=== PATIENT | female | born 1945 | race Caucasian/White ===

== ENCOUNTER 2017-02-16 10:39 | Inpatient (IN) | payer OTHER, MEDICARE ==
[2017-02-16] VITALS (10 sets, daily range): BP systolic 121–159; BP diastolic 61–74; PULSE 53–64; RESP 17–28; TEMP 98.2–98.5; O2SAT 96–100
[~2017-02-16] VITALS: Ht 165.1 cm; Wt 80.3 kg
[2017-02-16] MEDS ORDERED: ONDANSETRON HCL 4 MG/2 ML VIAL ONE (10:49)
[2017-02-16] MEDS ORDERED: ceFAZolin 2 GM PREMIX 50 ML ONE (10:49)
[2017-02-16] MEDS ORDERED: ONDANSETRON HCL 4 MG/2 ML VIAL IV PUSH ONE (11:00)
[2017-02-16] MEDS ORDERED: ceFAZolin 2 GM PREMIX 50 ML IV STA (11:00)
[2017-02-16 11:05] LABS: AUTOMATED NEUTROPHIL # 5.2 TH/MM3 (1.8-7.7); BASOPHIL # 0.1 TH/MM3 (0-0.2); BASOPHIL % 0.7 % (0.0-2.0); EOSINOPHIL # 0.2 TH/MM3 (0-0.4); EOSINOPHIL % 2.6 % (0.0-4.0); HEMATOCRIT 39.2 % (35.0-46.0); HEMOGLOBIN 13.4 GM/DL (11.6-15.3); LYMPH % 18.6 % (9.0-44.0); LYMPHOCYTE # 1.4 TH/MM3 (1.0-4.8); MEAN CELL VOLUME 90.6 FL (80.0-100.0); MEAN CORPUSCULAR HGB CONC 34.2 % (32.0-36.0); MEAN PLATELET VOLUME 7.7 FL (7.0-11.0); MONO % 9.7 % (0.0-8.0); MONOCYTE # 0.7 TH/MM3 (0-0.9); NEUT % 68.4 % (16.0-70.0); PLATELET COUNT 247 TH/MM3 (150-450); RED BLOOD COUNT 4.33 MIL/MM3 (4.00-5.30); RED CELL DISTRIBUTION WIDTH 13.7 % (11.6-17.2); WHITE BLOOD COUNT 7.6 TH/MM3 (4.0-11.0)
[2017-02-16 11:10] LABS: PROTHROMBIN TIME - PATIENT 10.6 SEC (9.8-11.6)
--- NOTE | 2017-02-16 11:11 | RADRPT ---
EXAM DATE/TIME: 02/16/2017 10:41 [facility] COMPARISON: No previous studies available for comparison. INDICATIONS : Trauma alert, fall. MEDICAL HISTORY : None. SURGICAL HISTORY : None. ENCOUNTER: Initial ACUITY: 1 day PAIN SCORE: Non-responsive. LOCATION: Bilateral chest FINDINGS: A single view of the chest demonstrates the lungs to be symmetrically aerated without evidence of mas s, infiltrate or effusion. The cardiomediastinal contours are unremarkable. Osseous structures are intact. There are overlying electrocardiogram leads. CONCLUSION: No acute cardiopulmonary disease. Girma Silver MD on February 16, 2017 at 11:09 Board Certified Radiologist. This report was verified electronically.
[2017-02-16] MEDS ORDERED: IOHEXOL 350 MG/ML 10 ML VIAL (for RAD DIAG) IVCONTRAST ONE (11:19)
[2017-02-16] MEDS ORDERED: PAXI10TA8 PO (11:26)
[2017-02-16] MEDS ORDERED: HYDR25TA5 PO (11:26)
[2017-02-16] MEDS ORDERED: ASPI-516 CHEW (11:26)
[2017-02-16] MEDS ORDERED: PROCHLORPERAZINE INJ 10 MG/2 ML VIAL IV PUSH ONE (11:30)
[2017-02-16] MEDS ORDERED: LIDOCAINE 2%/EPINEPHrine 1:100,000 30ML MDV INFIL ONE (11:30)
[2017-02-16] MEDS ORDERED: MORPHINE SULFATE 4 MG/ML INJ IV PUSH ONE (11:30)
[2017-02-16] MEDS ORDERED: LIDOCAINE HCL 1% 50 ML VIAL INFIL ONE (11:30)
--- NOTE | 2017-02-16 11:30 | RADRPT ---
EXAM DATE/TIME: 02/16/2017 10:58 [facility] COMPARISON: No previous studies available for comparison. INDICATIONS : Fell down stairs. RADIATION DOSE: 54.89 CTDIvol (mGy) MEDICAL HISTORY : Unobtainable SURGICAL HISTORY : Unobtainable ENCOUNTER: Initial ACUITY: 1 day PAIN SCALE: 9/10 LOCATION: cranial TECHNIQUE: Multiple contiguous axial images were obtained of the head. Using automated exposure control and adj ustment of the mA and/or kV according to patient size, radiation dose was kept as low as reasonably a chievable to obtain optimal diagnostic quality images. DICOM format image data is available electro nically for review and comparison. FINDINGS: There is subarachnoid hemorrhage along the suprasellar cisterns right greater than left. There i s also subarachnoid hemorrhage extending along both sides of the superior cerebral falx best seen on axial image #23. There is no mass effect or midline shift. The ventricular system is at the upper casillas its of normal. The posterior fossa and brainstem are intact. There is diffuse atrophic change with bruner lcal and ventricular prominence. There is soft tissue swelling over the left parietal and occipital b ones with no evidence of fracture. CONCLUSION: 1. Subarachnoid hemorrhage along the suprasellar cisterns right greater than left as well as along th e superior aspect of the cerebral falx. 2. Soft tissue swelling of the left parietal occipital bone with no evidence of fracture. Girma Silver MD on February 16, 2017 at 11:26 Board Certified Radiologist. This report was verified electronically.
--- NOTE | 2017-02-16 11:32 | RADRPT ---
EXAM DATE/TIME: 02/16/2017 10:58 [facility] COMPARISON: No previous studies available for comparison. INDICATIONS : Fell down stairs. RADIATION DOSE: 21.47 CTDIvol (mGy) MEDICAL HISTORY : Unobtainable SURGICAL HISTORY : Unobtainable ENCOUNTER: Initial ACUITY: 1 day PAIN SCALE: 9/10 LOCATION: neck TECHNIQUE: Volumetric scanning of the cervical spine was performed. Multiplanar reconstructions in the sagittal, coronal and oblique axial planes were performed. Using automated exposure control and adjustment o f the mA and/or kV according to patient size, radiation dose was kept as low as reasonably achievable to obtain optimal diagnostic quality images. DICOM format image data is available electronically f or review and comparison. FINDINGS: The sagittal reconstructions demonstrate normal alignment and normal prevertebral soft tissues. The d ens is intact and there is a normal atlantoaxial relationship. Degenerative disc changes are noted wi th disc space narrowing and hypertrophic change. Ossification is noted along the posterior longitudin al ligament with mass effect on the thecal sac at the C4-C6 7 level. The axial images demonstrate that the vertebral bodies and posterior elements are intact. The soft ti ssues are within normal limits. There is no evidence of acute fracture or malalignment. CONCLUSION: Negative trauma CT. Girma Silver MD on February 16, 2017 at 11:29 Board Certified Radiologist. This report was verified electronically.
--- NOTE | 2017-02-16 11:38 | RADRPT ---
EXAM DATE/TIME: 02/16/2017 11:07 [facility] COMPARISON: No previous studies available for comparison. INDICATIONS : Fell down stairs. IV CONTRAST: 95 cc Omnipaque 350 (iohexol) IV RADIATION DOSE: 4.62 CTDIvol (mGy) MEDICAL HISTORY : Unobtainable SURGICAL HISTORY : Unobtainable ENCOUNTER: Initial ACUITY: 1 day PAIN SCALE: 9/10 LOCATION: chest TECHNIQUE: Volumetric scanning of the chest was performed. Using automated exposure control and adjustment of t he mA and/or kV according to patient size, radiation dose was kept as low as reasonably achievable to obtain optimal diagnostic quality images. DICOM format image data is available electronically for review and comparison. Follow-up recommendations for detected pulmonary nodules are based at a minimum on nodule size and pa tient risk factors according to Fleischner Society Guidelines. FINDINGS: LUNGS: There is no consolidation or pneumothorax. No concerning pulmonary nodule is visualized. PLEURA: There is no pleural thickening or pleural effusion. MEDIASTINUM: The heart and great vessels demonstrate no acute abnormality. There is no mediastinal or hilar lymph adenopathy. AXILLAE: Within normal limits. No lymphadenopathy. SKELETAL: Within normal limits for patient age. MISCELLANEOUS: The visualized upper abdominal organs demonstrate no acute abnormality. CONCLUSION: Negative trauma CT Girma Silver MD on February 16, 2017 at 11:35 Board Certified Radiologist. This report was verified electronically.
--- NOTE | 2017-02-16 11:51 | PD ---
Physical Exam Date Seen by Provider: Feb 16, 2017 Time Seen by Provider: 11:48 Data Data Last Documented VS Vital Signs Date Time Temp Pulse Resp B/P (MAP) Pulse Ox O2 Delivery O2 Flow Rate FiO2 02/16/17 11:29 100 Room Air 02/16/17 10:49 3.00 Orders Orders Cefazolin 2 Gm Premix (Ancef 2 Gm Premix (02/16/17 10:49) Ondansetron Inj (Zofran Inj) (02/16/17 10:49) I-Stat Profile (02/16/17 10:42) I-Stat Creatinine (02/16/17 10:42) Complete Blood Count With Diff (02/16/17 10:42) Prothrombin Time / Inr (Pt) (02/16/17 10:42) Act Partial Throm Time (Ptt) (02/16/17 10:42) Type And Screen (02/16/17 10:42) Chest, Single Ap (02/16/17 10:42) Ct Brain W/O Iv Contrast(Rout) (02/16/17 10:42) Ct Cerv Spine W/O Contrast (02/16/17 10:42) Ct Thorax/ Chest W Iv Contrast (02/16/17 10:42) Iv Access Insert/Monitor (02/16/17 10:42) Ecg Monitoring (02/16/17 10:42) Oximetry (02/16/17 10:42) Oxygen Administration (02/16/17 10:42) Lidocaine 1% Inj (50 Ml) (Xylocaine 1% I (02/16/17 11:30) Iohexol 350 Inj (Omnipaque 350 Inj) (02/16/17 11:19) Lidocai-Epi 2%-1:100,000 Inj (Xylocaine- (02/16/17 11:30) Morphine Inj (Morphine Inj) (02/16/17 11:30) Prochlorperazine Inj (Compazine Inj) (02/16/17 11:30) Labs Laboratory Tests Test 02/16/17 10:45 White Blood Count 7.6 TH/MM3 Red Blood Count 4.33 MIL/MM3 Hemoglobin 13.4 GM/DL Bedside Hemoglobin 12.6 G/DL Hematocrit 39.2 % Bedside Hematocrit 37.0 % Mean Corpuscular Volume 90.6 FL Mean Corpuscular Hemoglobin 31.0 PG Mean Corpuscular Hemoglobin Concent 34.2 % Red Cell Distribution Width 13.7 % Platelet Count 247 TH/MM3 Mean Platelet Volume 7.7 FL Neutrophils (%) (Auto) 68.4 % Lymphocytes (%) (Auto) 18.6 % Monocytes (%) (Auto) 9.7 % Eosinophils (%) (Auto) 2.6 % Basophils (%) (Auto) 0.7 % Neutrophils # (Auto) 5.2 TH/MM3 Lymphocytes # (Auto) 1.4 TH/MM3 Monocytes # (Auto) 0.7 TH/MM3 Eosinophils # (Auto) 0.2 TH/MM3 Basophils # (Auto) 0.1 TH/MM3 CBC Comment DIFF FINAL Differential Comment Prothrombin Time 10.6 SEC Prothromb Time International Ratio 1.0 RATIO Activated Partial Thromboplast Time 22.1 SEC Bedside Sodium 142 MMOL/L Bedside Potassium 3.3 MMOL/L Bedside Chloride 106 MMOL/L Bedside Blood Urea Nitrogen 10 MG/DL Bedside Creatinine 0.6 MG/DL Bedside Glucose 122 MG/DL [facility] Supervised Visit with HONG: No Narrative Course I was asked to evaluate this patient's scalp laceration. The patient was initially seen by Dr. Barnes. Please see his note for full H& P. On my exam there is a stellate laceration of the occiput totaling approximately 6 cm. Laceration repair was performed. Please see my procedure note for details. Dr. Barnes retains care of this patient. Please see his note for disposition. Procedures Procedure Narrative LACERATION LOCATION: Posterior scalp LENGTH: 6 cm stellate NUMBER OF STITCHES/MARGARITA: 12 REPAIR: The area of the laceration was prepped with Betadine and sterilely draped. The laceration was infiltrated with 1% lidocaine with epinephrine. The wound was copiously irrigated and explored without evidence of foreign body, tendon injury or neurovascular injury. The wound was closed using surgical margarita. This was a single layer repair.. The patient was advised to keep the wound clean and dry. Patient tolerated the procedure well. Gem Mcdonnell Feb 16, 2017 11:51
--- NOTE | 2017-02-16 13:17 | PD ---
HPI Chief Complaint: Trauma (Alert) Time Seen by Provider: 11:15 Travel History International Travel<30 days: No Contact w/Intl Traveler<30days: No Traveled to known affect area: No History of Present Illness HPI 77-year-old female with history of hypertension, previous A. fib, who presents today after she fell down stairs. Patient was made a trauma alert by the EMS system for geophysical engineer discretion. Report was that she fell down 20 steps. [employer]'s report a loss of consciousness for greater than 1 minute. There is also reported large laceration to the back of her head. Patient was complaining of lateral neck pain. The patient was amnestic to the event. She was slightly confused en route. She is currently not taking any blood thinners other than a baby aspirin daily. She also takes Hydrocort thiazide. She reports her tetanus shot is up-to-date. There are no other reported injuries. Allergies-Medications (Allergen,Severity, Reaction): Coded Allergies: aspirin (Verified Allergy, Unknown, Nausea/Vomiting, 02/16/17) codeine (Verified Allergy, Unknown, Nausea/Vomiting, 02/16/17) oxycodone (Verified Allergy, Unknown, Nausea/Vomiting, 02/16/17) Reported Meds & Prescriptions Reported Meds & Active Scripts Active Reported Aspirin 81 Mg Chew 81 Mg CHEW DAILY Hydrochlorothiazide 25 Mg Tab 25 Mg PO DAILY Paxil (Paroxetine HCl) 10 Mg Tab 10 Mg PO DAILY Review of Systems Except as stated in HPI: all other systems reviewed are Neg General / Constitutional: No: Fever, Chills Eyes: No: Diploplia, Blurred Vision HENT: Positive: Headaches (left lateral/posterior), Neck Pain (left lateral), No: Vertigo Cardiovascular: No: Chest Pain or Discomfort, Palpitations Respiratory: No: Shortness of Breath, Pleuritic Pain Gastrointestinal: Positive: Nausea, No: Vomiting, Abdominal Pain Genitourinary: No: Incontinence Musculoskeletal: No: Myalgias, Weakness, Edema, Pain (no extremity pain) Skin: Positive Lesions (left posterior scalp laceration), No Rash Neurologic: Positive: Headache, Change in Mentation, No: Weakness, Dizziness, Syncope, Incontinence, Seizures, Sensory Disturbance Psychiatric: Positive: Anxiety Physical Exam Narrative GENERAL: Well-developed well-nourished female who is brought in with a c-collar and. The patient was refusing backboard. He was awake and answering questions as she was being wheeled in. SKIN: Focused skin assessment warm/dry. HEAD: Large stellate laceration to the left posterior occipital area. There appeared to be some tissue missing. There is no obvious depressed skull fracture noted. No active bleeding. EYES: Extraocular muscles were intact No scleral icterus. No injection or drainage. ENT: No nasal bleeding or discharge. Mucous membranes pink and moist. NECK: Trachea midline. In c-collar immobilization. CARDIOVASCULAR: Regular rate and rhythm. No murmur appreciated. RESPIRATORY: No accessory muscle use. Clear to auscultation. Breath sounds equal bilaterally. GASTROINTESTINAL: Abdomen soft, non-tender, nondistended. No rebound or guarding. MUSCULOSKELETAL: No obvious deformities. No clubbing. No cyanosis. No edema. No obvious abrasions noted. NEUROLOGICAL: Awake and alert. Questionable slight repetitive questioning No obvious cranial nerve deficits. Motor grossly within normal limits. Normal speech. PSYCHIATRIC: Appropriate mood and affect; insight and judgment normal. Data Data Last Documented VS Vital Signs Date Time Temp Pulse Resp B/P (MAP) Pulse Ox O2 Delivery O2 Flow Rate FiO2 02/16/17 11:29 100 Room Air 02/16/17 10:49 3.00 Orders Orders Cefazolin 2 Gm Premix (Ancef 2 Gm Premix (02/16/17 10:49) Ondansetron Inj (Zofran Inj) (02/16/17 10:49) I-Stat Profile (02/16/17 10:42) I-Stat Creatinine (02/16/17 10:42) Complete Blood Count With Diff (02/16/17 10:42) Prothrombin Time / Inr (Pt) (02/16/17 10:42) Act Partial Throm Time (Ptt) (02/16/17 10:42) Type And Screen (02/16/17 10:42) Chest, Single Ap (02/16/17 10:42) Ct Brain W/O Iv Contrast(Rout) (02/16/17 10:42) Ct Cerv Spine W/O Contrast (02/16/17 10:42) Ct Thorax/ Chest W Iv Contrast (02/16/17 10:42) Iv Access Insert/Monitor (02/16/17 10:42) Ecg Monitoring (02/16/17 10:42) Oximetry (02/16/17 10:42) Oxygen Administration (02/16/17 10:42) Lidocaine 1% Inj (50 Ml) (Xylocaine 1% I (02/16/17 11:30) Iohexol 350 Inj (Omnipaque 350 Inj) (02/16/17 11:19) Lidocai-Epi 2%-1:100,000 Inj (Xylocaine- (02/16/17 11:30) Morphine Inj (Morphine Inj) (02/16/17 11:30) Prochlorperazine Inj (Compazine Inj) (02/16/17 11:30) Admit Order (Ed Use Only) (02/16/17 11:53) Cefazolin 2 Gm Premix (Ancef 2 Gm Premix (02/16/17 11:00) Ondansetron Inj (Zofran Inj) (02/16/17 11:00) Labs Laboratory Tests Test 02/16/17 10:45 White Blood Count 7.6 TH/MM3 Red Blood Count 4.33 MIL/MM3 Hemoglobin 13.4 GM/DL Bedside Hemoglobin 12.6 G/DL Hematocrit 39.2 % Bedside Hematocrit 37.0 % Mean Corpuscular Volume 90.6 FL Mean Corpuscular Hemoglobin 31.0 PG Mean Corpuscular Hemoglobin Concent 34.2 % Red Cell Distribution Width 13.7 % Platelet Count 247 TH/MM3 Mean Platelet Volume 7.7 FL Neutrophils (%) (Auto) 68.4 % Lymphocytes (%) (Auto) 18.6 % Monocytes (%) (Auto) 9.7 % Eosinophils (%) (Auto) 2.6 % Basophils (%) (Auto) 0.7 % Neutrophils # (Auto) 5.2 TH/MM3 Lymphocytes # (Auto) 1.4 TH/MM3 Monocytes # (Auto) 0.7 TH/MM3 Eosinophils # (Auto) 0.2 TH/MM3 Basophils # (Auto) 0.1 TH/MM3 CBC Comment DIFF FINAL Differential Comment Prothrombin Time 10.6 SEC Prothromb Time International Ratio 1.0 RATIO Activated Partial Thromboplast Time 22.1 SEC Bedside Sodium 142 MMOL/L Bedside Potassium 3.3 MMOL/L Bedside Chloride 106 MMOL/L Bedside Blood Urea Nitrogen 10 MG/DL Bedside Creatinine 0.6 MG/DL Bedside Glucose 122 MG/DL [facility] Medical Screen Exam Complete: Yes Emergency Medical Condition: Yes Differential Diagnosis Intercranial hemorrhage versus skull fracture versus scalp laceration versus cervical spine injury Narrative Course 77-year-old female who is status post falling down stairs. This was unwitnessed. There was witness of at least 1 minute of loss of consciousness. The patient has a large scalp laceration that has been repaired by Ann Mcdonnell PA-C. The patient's head CT shows subarachnoid hemorrhage with no midline shift. Cervical spine films show no evidence of acute injury. Thoracic chest CT scan showed no evidence acute injury or thoracic injury. This was ordered because the plain films showed questionable lung hematoma in the left lower lobe. The patient was given 2 g of Ancef. Her tetanus shot was up-to-date. She will be admitted to the intensive care unit. The case is discussed with Dr. Arrieta, on-call trauma surgeon. Case also discussed with Dr. Jarrell Branch, hand clipper. Dr. Elkin Irby on-call neurosurgeon has also been made aware of the patient's presentation. He is come down to see the patient has requested we order a CT angiogram of the brain. This has been ordered. The patient is awake and alert and oriented. She'll be admitted to the intensive care under Dr. Arrieta with consults with both Drs. Branch and Dr. Irby. Critical Care Narrative Aggregate critical care time was 60 minutes. Time to perform other separately billable procedures was not included in the critical care time. My time did not include minutes spent treating any other patients simultaneously or on activities that did not directly contribute to the patient's treatment. The services I provided to this patient were to treat and/or prevent clinically significant deterioration that could result in: I provided critical care services requiring my management, as noted below: Chart data review, documentation time, medication orders and management, vital sign assessments/reviewing monitor data, ordering and reviewing lab tests, ordering and interpreting/reviewing x-rays and diagnostic studies, care of the patient and discussion of the patient with the admitting physicians. Trauma Alert - Level Two Trauma Alert Level Two: Full trauma team activate, Patient evaluated Time Surgeon Called: 11:30 Diagnosis Diagnosis: Primary Impression: Traumatic subarachnoid hemorrhage Additional Impressions: complex scalp laceration mechanical fall Admitting Physician Requests: Admit Edward Barnes MD Feb 16, 2017 13:17
[2017-02-16] MEDS ORDERED: CHLORHEXIDINE GLUCONATE 2 % 1 PACK (2 CLOTHS) TOP PRN (13:45)
[2017-02-16] MEDS ORDERED: MAGNESIUM HYDROXIDE SUSP 30 ML CUP PO PRN (13:45)
[2017-02-16] MEDS ORDERED: MORPHINE SULFATE 2 MG/ML INJ IV PUSH PRN (13:45)
[2017-02-16] MEDS ORDERED: SODIUM CHLORIDE 0.9% FLUSH 10 ML FLUSH IV FLUSH PRN (13:45)
[2017-02-16] MEDS ORDERED: RESP: ALBUTEROL 2.5 MG/IPRATROPIUM 0.5 MG NEB (PRN) INH (13:45)
[2017-02-16] MEDS ORDERED: BISACODYL 10 MG SUPP RECTAL PRN (13:45)
[2017-02-16] MEDS: SODIUM CHLOR 0.9% 1000 ML INJ 1,000 ML IV SCH (13:45)
[2017-02-16] MEDS ORDERED: LACTULOSE SYRUP 20 GM/30 ML CUP PO PRN (13:45)
[2017-02-16] MEDS ORDERED: SENNOSIDES 8.6 MG TAB PO PRN (13:45)
--- NOTE | 2017-02-16 13:46 | PD.CONS ---
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 CT head reveals subarachnoid hemorrhage. She is conversant and oriented X [address] neck has no acute injury. She will go now for cervical and intracranial arterial studies to look for possible aneurysm as etiology of bleed. Past Family Social History Allergies: Coded Allergies: aspirin (Verified Allergy, Unknown, Nausea/Vomiting, 02/16/17) codeine (Verified Allergy, Unknown, Nausea/Vomiting, 02/16/17) oxycodone (Verified Allergy, Unknown, Nausea/Vomiting, 02/16/17) Physical Exam Vital Signs Vital Signs Date Time Temp Pulse Resp B/P (MAP) Pulse Ox O2 Delivery O2 Flow Rate FiO2 02/16/17 13:03 53 18 152/65 (94) 100 Room Air 02/16/17 12:40 99 02/16/17 12:33 63 17 159/72 (101) 99 Room Air 02/16/17 11:29 100 Room Air 02/16/17 11:29 100 Room Air 02/16/17 10:49 99 3.00 Physical Exam P 64, BP 136/74, R 16 nonlabored, sats 99% Head: Normal. Neck: Stiff, sore. Airway widely patent. Lungs: Clear, no wheezes or crackles. Heart: NL S1S2, RRR. No JVD. Abdomen: Soft, no guarding, BS active. Extremities: Warm, well perfused. No edema. Neuro: O X 3, alert, cooperative. Memory good. Speech clear. Moves 4 limbs with 5/5 strength. Laboratory Laboratory Tests Test 02/16/17 10:45 White Blood Count 7.6 Red Blood Count 4.33 Hemoglobin 13.4 Bedside Hemoglobin 12.6 Hematocrit 39.2 Bedside Hematocrit 37.0 Mean Corpuscular Volume 90.6 Mean Corpuscular Hemoglobin 31.0 Mean Corpuscular Hemoglobin Concent 34.2 Red Cell Distribution Width 13.7 Platelet Count 247 Mean Platelet Volume 7.7 Neutrophils (%) (Auto) 68.4 Lymphocytes (%) (Auto) 18.6 Monocytes (%) (Auto) 9.7 Eosinophils (%) (Auto) 2.6 Basophils (%) (Auto) 0.7 Neutrophils # (Auto) 5.2 Lymphocytes # (Auto) 1.4 Monocytes # (Auto) 0.7 Eosinophils # (Auto) 0.2 Basophils # (Auto) 0.1 CBC Comment DIFF FINAL Differential Comment Prothrombin Time 10.6 Prothromb Time International Ratio 1.0 Activated Partial Thromboplast Time 22.1 Bedside Sodium 142 Bedside Potassium 3.3 Bedside Chloride 106 Bedside Blood Urea Nitrogen 10 Bedside Creatinine 0.6 Bedside Glucose 122 Result Diagram: 02/16/17 1045 Assessment and Plan Problem List: (1) Traumatic subarachnoid hemorrhage ICD Code: S06.6X9A - Traumatic subarachnoid hemorrhage with loss of consciousness of unspecified duration, initial encounter Status: Acute Assessment and Plan Plan: 1. Neuro checks. 2. Repeat Head CT for any change. 3. IV isotonic saline. 4. Avoid chemical DVT px. 5. Ongoing survey looking for additional possible injuries. 6. SCDs. 7. CTA head and neck. 8. Maintain SBP < 150. 9. Neurology consult. Overall impression: Patient has traumatic subarachnoid bleed, likely from trauma but quite possibly from aneurysmal bleed. Expeditious workup in progress. BP control good. Problem Qualifiers (1) Traumatic subarachnoid hemorrhage: Qualified Codes: S06.6X0A - Traumatic subarachnoid hemorrhage without loss of consciousness, initial encounter Edward Branch MD Feb 16, 2017 13:46
[2017-02-16] MEDS ORDERED: MISCELLANEOUS NURSING INFORMATION XX SCH (14:00)
[2017-02-16] MEDS ORDERED: PILL SPLITTER OTHER PRN (14:00)
[2017-02-16] MEDS ORDERED: IODIXANOL 320 MG/ML 10 ML VIAL (for Rad CT) IVCONTRAST ONE (14:17)
--- NOTE | 2017-02-16 15:13 | RADRPT ---
EXAM DATE/TIME: 02/16/2017 13:44 [facility] COMPARISON: CT BRAIN W/O CONTRAST, February 16, 2017, 10:58. INDICATIONS : Subarchnoid hemorage,trauma IV CONTRAST: 70 cc Visipaque (iodixanol) IV ; Cumulative dose for multiple exams. RADIATION DOSE: 17.23 CTDIvol (mGy) ; Combined studies MEDICAL HISTORY : Unable to obtain SURGICAL HISTORY : Unable to obtain ENCOUNTER: Initial ACUITY: 1 day PAIN SCALE: 5/10 LOCATION: CTA BRAIN TECHNIQUE: Volumetric scanning was performed using a multi-row detector CT scanner. The data was post processed with a variety of visualization algorithms including full volume maximum intensity projection, multi -planar sliding thin slab reformation, curved planar reformation, and surface rendering techniques. Using automated exposure control and adjustment of the mA and/or kV according to patient size, radiat ion dose was kept as low as reasonably achievable to obtain optimal diagnostic quality images. DICO M format image data is available electronically for review and comparison. FINDINGS: The distal aspect of the left anterior cerebral artery A1 segment appears to be fenestrated. The more caudal channel is notable for a roughly 2 mm saccular outpouching which could be a tiny aneurysm. Th e [place] of [place] vessels are otherwise intact and unremarkable. No major vessel occlusion is identi fied. No vascular malformation is noted. 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 Jayden Romero MD on February 16, 2017 at 14:59 Board Certified Radiologist. This report was verified electronically.
--- NOTE | 2017-02-16 15:22 | RADRPT ---
EXAM DATE/TIME: 02/16/2017 13:44 [facility] COMPARISON: No previous studies available for comparison. INDICATIONS : Subarchnoid hemorage,trauma IV CONTRAST: 70 cc Visipaque (iodixanol) IV ; Cumulative dose for multiple exams. RADIATION DOSE: 17.23 CTDIvol (mGy) ; Combined studies MEDICAL HISTORY : Unable to obtaion SURGICAL HISTORY : unable to obtain ENCOUNTER: Initial ACUITY: 1 day PAIN SCALE: 5/10 LOCATION: CTA neck Elevated flow velocities and ICA/CCA ratios have been found to correlate with increased degrees of vessel stenosis, calculated as percentage of diameter relative to a normal segment of distal ICA/CCA. TECHNIQUE: Volumetric scanning was performed using a multirow detector CT scanner. The data was post processed with a variety of visualization algorithms including full-volume maximum intensity projection, multip lanar sliding thin-slab reformation, curved-planar reformation, and surface-rendering techniques. Us ing automated exposure control and adjustment of the mA and/or kV according to patient size, radiatio n dose was kept as low as reasonably achievable to obtain optimal diagnostic quality images. DICOM f ormat image data is available electronically for review and comparison. FINDINGS: AORTIC ARCH: Truncus arch anatomy. No evidence of large vessel stenosis. RIGHT CAROTID: The common carotid artery is intact. The carotid bulb has a normal configuration without ulceration o r narrowing. The internal carotid artery lumen is smooth without stenosis. The external carotid alexis ry is intact. LEFT CAROTID: The carotid bifurcation is intact and unremarkable with no evidence of stenosis. The cervical interna l carotid artery is notable for areas of mild beading several centimeters above the bifurcation which may reflect mild involvement with fibromuscular dysplasia VERTEBRALS: The vertebral arteries have a symmetric diameter. No stenotic lesions are seen. 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 Jayedn Romero MD on February 16, 2017 at 15:12 Board Certified Radiologist. This report was verified electronically.
[2017-02-16] MEDS: ACETAMINOPHEN 325 MG TAB PO PRN ×2 (16:18→22:05)
[2017-02-16] MEDS ORDERED: POTASSIUM PHOSPHATE MONOBASIC 500 MG TAB PO/TUBE PRN (16:30)
[2017-02-16] MEDS ORDERED: POTASSIUM CHLOR 20 MEQ PREMIX 100 ML IV PRN ×2 (16:30)
[2017-02-16] MEDS ORDERED: hydrALAZINE HCL 20 MG/ML VIAL IV PUSH PRN (16:30)
[2017-02-16] MEDS ORDERED: POTASSIUM PHOSPHATE INJ 30 MMOL in SODIUM CHLOR 0.9% 250 ML INJ 250 ML IV PRN (16:30)
[2017-02-16] MEDS ORDERED: MAGNESIUM OXIDE 400 MG TAB PO PRN (16:30)
[2017-02-16] MEDS ORDERED: MAGNESIUM SULFATE INJ 4 GM in SODIUM CHLORIDE 0.9% INJ 92 ML IV PRN (16:30)
[2017-02-16] MEDS ORDERED: MAGNESIUM SULFATE INJ 2 GM in SODIUM CHLORIDE 0.9% INJ 96 ML IV PRN (16:30)
[2017-02-16] MEDS ORDERED: POTASSIUM CHLOR 40 MEQ PREMIX 100 ML IV PRN ×2 (16:30)
[2017-02-16] MEDS ORDERED: POTASSIUM PHOSPHATE MONOBASIC 500 MG TAB PO PRN (16:30)
[2017-02-16] MEDS ORDERED: SODIUM PHOSPHATE INJ 30 MMOL in SODIUM CHLOR 0.9% 250 ML INJ 240 ML IV PRN (16:30)
[2017-02-16] MEDS: POTASSIUM CHLORIDE 25 MEQ EFFERVESCENT TAB PO PRN (17:49)
--- NOTE | 2017-02-16 18:20 | PD.CONS ---
HPI Service Neurosurgery Consult Requested By General surgery trauma service Reason for Consult Intracranial-subarachnoid hemorrhage Primary Care Physician Unknown History of Present Illness Patient is a middle-aged female who states that she became dizzy and/or off balance at the top of a flight of stairs, losing her balance and falling down the stairs without definite loss of consciousness. No seizure activity reported Complains of mild headache and nausea without emesis. No dizziness or vertigo. No recent syncopal type episodes No chest pain or shortness of breath No significant pain weakness or numbness in the extremities Review of Systems Constitutional: DENIES: Dizziness Eyes: DENIES: Blurred vision Ears, nose, mouth, throat: DENIES: Hearing loss, Vertigo Respiratory: DENIES: Shortness of breath Cardiovascular: DENIES: Chest pain, Palpitations Gastrointestinal: COMPLAINS OF: Nausea, DENIES: Abdominal pain, Vomiting Musculoskeletal: DENIES: Back pain, Neck pain Neurologic: COMPLAINS OF: Headache Psychiatric: DENIES: Confusion Past Family Social History Allergies: Coded Allergies: aspirin (Verified Allergy, Unknown, Nausea/Vomiting, 02/16/17) codeine (Verified Allergy, Unknown, Nausea/Vomiting, 02/16/17) oxycodone (Verified Allergy, Unknown, Nausea/Vomiting, 02/16/17) Past Medical History No significant cardiac, pulmonary, gastrointestinal disease, diabetes. No definite hypertension. She states she takes hydrochlorothiazide due to edema. Past Surgical History Hysterectomy Reported Medications Reported Meds & Active Scripts Active Reported Aspirin 81 Mg Chew 81 Mg CHEW DAILY Hydrochlorothiazide 25 Mg Tab 25 Mg PO DAILY Paxil (Paroxetine HCl) 10 Mg Tab 10 Mg PO DAILY Family History Negative cardiac disease, cancer, diabetes Social History Does not smoke cigarettes. Drinks alcohol occasionally Physical Exam Vital Signs Vital Signs Date Time Temp Pulse Resp B/P (MAP) Pulse Ox O2 Delivery O2 Flow Rate FiO2 02/16/17 16:11 02/16/17 16:00 98.2 63 28 128/62 (84) 96 02/16/17 16:00 63 02/16/17 15:10 64 18 136/74 (94) 96 Room Air 02/16/17 13:03 53 18 152/65 (94) 100 Room Air 02/16/17 12:40 99 02/16/17 12:33 63 17 159/72 (101) 99 Room Air 02/16/17 11:29 100 Room Air 02/16/17 11:29 100 Room Air 02/16/17 10:49 99 3.00 Physical Exam GENERAL: This is a well-nourished, well-developed patient, no apparent distress. SKIN: No abrasions, contusion, rash noted. Skin warm and dry. HEAD: Stable laceration right occipital region EYES: Sclerae are clear and nonicteric ENT: No facial edema or ecchymosis. No periorbital edema. No CSF otorrhea or rhinorrhea. No palpable facial fracture or deformity. NECK: Trachea midline. No cervical spine tenderness. CARDIOVASCULAR: Regular rate and rhythm without murmurs, gallops, or rubs. RESPIRATORY: Clear to auscultation. Breath sounds equal bilaterally. No wheezes , rales, or rhonchi. GASTROINTESTINAL: Abdomen soft, non-tender, nondistended. No hepato-splenomegaly , or palpable masses. No guarding. MUSCULOSKELETAL: Extremities without cyanosis, or edema. No joint tenderness, or edema noted. No calf tenderness. Dorsalis pedis pulses 2+ bilateral NEUROLOGICAL: Awake and alert Oriented X 3 Speech is clear Conversant and appropriate Follow simple commands well Answers questions appropriately Reasonable judgment and insight Recent and remote memory are intact No evidence of anxiety or depression Pupils are equal and reactive to accommodation. Extra-ocular movements, visual toney to confrontation, facial sensorimotor, tongue, palate, sternocleidomastoid testing, hearing to finger rub testing, and bilateral shoulder shrug are all intact. Sensation is intact to light touch in all extremities Strength normal major flexion and extension groups all extremities Evert's absent bilaterally No ankle clonus Plantar responses absent bilateral Fine motor movements intact upper extremities Laboratory Laboratory Tests Test 02/16/17 10:45 02/16/17 16:50 White Blood Count 7.6 Red Blood Count 4.33 Hemoglobin 13.4 Bedside Hemoglobin 12.6 Hematocrit 39.2 Bedside Hematocrit 37.0 Mean Corpuscular Volume 90.6 Mean Corpuscular Hemoglobin 31.0 Mean Corpuscular Hemoglobin Concent 34.2 Red Cell Distribution Width 13.7 Platelet Count 247 Mean Platelet Volume 7.7 Neutrophils (%) (Auto) 68.4 Lymphocytes (%) (Auto) 18.6 Monocytes (%) (Auto) 9.7 Eosinophils (%) (Auto) 2.6 Basophils (%) (Auto) 0.7 Neutrophils # (Auto) 5.2 Lymphocytes # (Auto) 1.4 Monocytes # (Auto) 0.7 Eosinophils # (Auto) 0.2 Basophils # (Auto) 0.1 CBC Comment DIFF FINAL Differential Comment Prothrombin Time 10.6 Prothromb Time International Ratio 1.0 Activated Partial Thromboplast Time 22.1 Bedside Sodium 142 Bedside Potassium 3.3 Bedside Chloride 106 Bedside Blood Urea Nitrogen 10 Bedside Creatinine 0.6 Bedside Glucose 122 Result Diagram: 02/16/17 1045 Imaging 02/16/17 CT scan head as well as CT angiogram has neck images are reviewed by the undersigned. Agree with findings as noted below: Head CT 02/16/17 104 Signed Impressions: Service Date/Time: Thursday, February 16, 2017 10:58 - CONCLUSION: 1. Subarachnoid hemorrhage along the suprasellar cisterns right greater than left as well as along the superior aspect of the cerebral falx. 2. Soft tissue swelling of the left parietal occipital bone with no evidence of fracture. Girma Silver MD Chest X-Ray 02/16/17 104 Signed Impressions: Service Date/Time: Thursday, February 16, 2017 10:41 - CONCLUSION: No acute cardiopulmonary disease. Girma Silver MD Chest CT 02/16/17 1042 Signed Impressions: Service Date/Time: Thursday, February 16, 2017 11:07 - CONCLUSION: Negative trauma CT Girma Silver MD Cervical Spine CT 02/16/17 1042 Signed Impressions: Service Date/Time: Thursday, February 16, 2017 10:58 - CONCLUSION: Negative trauma CT. 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 Jadyen Romero MD Assessment and Plan Assessment and Plan Impression: 1. Intracranial hemorrhage-subarachnoid hemorrhage. Traumatic versus spontaneous. 2. 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 Recommendations: Continue ISC neurologic checks and vital signs Begin nimodipine due to potential for small anterior cerebral artery aneurysm- subarachnoid hemorrhage. Maintain blood pressure 110-140 range with intravenous medications as needed Non-chemical DVT prophylaxis Ulcer prophylaxis Elkin Irby MD Feb 16, 2017 18:20
--- NOTE | 2017-02-16 18:31 | MH ---
cc: DUNCAN KINCAID DATE OF ADMISSION 02/16/2017 HISTORY OF THE PRESENT ILLNESS This is a patient who was walking and slipped and tripped down a flight of stairs. She was brought in as a level II trauma and evaluated in the emergency room. Found to have closed head injury. Trauma service was requested for admission. On my evaluation the patient is laying in stretcher in no acute distress. A complains of headache. No chest pains or shortness of breath. No paresthesia. She did lose consciousness. PAST MEDICAL HISTORY The patient denies a medical history. PAST SURGICAL HISTORY Has a surgical history significant for hysterectomy. MEDICATIONS She is on aspirin at home. SOCIAL HISTORY She does not smoke. She drinks alcohol occasionally. FAMILY HISTORY Noncontributory. ALLERGIES TO CODEINE. PHYSICAL EXAMINATION HEENT: On exam she has a stapled laceration to her occipital region. Her pupils are equal and reactive. NECK: Nontender. No JVD. LUNGS: Respirations clear. CARDIOVASCULAR: Regular. GASTROINTESTINAL: Soft, nontender. MUSCULOSKELETAL: No deformities. NEUROLOGIC: Nonfocal. LABORATORY DATA The patient's hemoglobin is 12.6. IMAGING Radiological images, CT of the head reveals subarachnoid hemorrhage. CT of the cervical spine is negative. CT scan of the chest is negative. ASSESSMENT This is a patient who slipped and fell with subarachnoid hemorrhage, sutured laceration of forehead. She is being admitted to [facility]. Neurosurgery and assurance specialist will be consulted. We will monitor her neurological status, provide pain management. MD JAMI Patrick/[facility] /5:30 PM /6:07 PM
[2017-02-16] MEDS: SODIUM CHLORIDE 0.9% FLUSH 10 ML FLUSH IV FLUSH SCH (20:18)
[2017-02-16] MEDS: niMODipine 30 MG CAP PO SCH (20:18)
[2017-02-16] MEDS: DOCUSATE SODIUM 50 MG/SENNA 8.6 MG TAB PO SCH (20:22)
[2017-02-16] MEDS: FAMOTIDINE 20 MG TAB PO SCH (20:22)
[2017-02-16] MEDS: ONDANSETRON HCL 4 MG/2 ML VIAL IV PUSH PRN (21:48)
[2017-02-17] VITALS (14 sets, daily range): BP systolic 97–132; BP diastolic 50–61; PULSE 46–59; RESP 13–18; TEMP 97.4–99; O2SAT 94–96
[2017-02-17] MEDS: niMODipine 30 MG CAP PO SCH ×11 (00:25→22:06)
[2017-02-17] MEDS: SODIUM CHLOR 0.9% 1000 ML INJ 1,000 ML IV SCH ×2 (03:14→16:04)
[2017-02-17] MEDS: CHLORHEXIDINE GLUCONATE 2 % 1 PACK (2 CLOTHS) TOP SCH (04:00)
[2017-02-17] MEDS: ACETAMINOPHEN 325 MG TAB PO PRN ×3 (04:08→17:03)
[2017-02-17 04:53] LABS: AUTOMATED NEUTROPHIL # 5.4 TH/MM3 (1.8-7.7); BASOPHIL % 0.4 % (0.0-2.0); EOSINOPHIL # 0.1 TH/MM3 (0-0.4); HEMATOCRIT 32.7 % (35.0-46.0); HEMOGLOBIN 11.3 GM/DL (11.6-15.3); LYMPH % 19.2 % (9.0-44.0); LYMPHOCYTE # 1.5 TH/MM3 (1.0-4.8); MEAN CORPUSCULAR HEMOGLOBIN 31.1 PG (27.0-34.0); MEAN CORPUSCULAR HGB CONC 34.6 % (32.0-36.0); MEAN PLATELET VOLUME 7.8 FL (7.0-11.0); MONO % 9.9 % (0.0-8.0); MONOCYTE # 0.8 TH/MM3 (0-0.9); NEUT % 69.5 % (16.0-70.0); PLATELET COUNT 223 TH/MM3 (150-450); RED BLOOD COUNT 3.64 MIL/MM3 (4.00-5.30); RED CELL DISTRIBUTION WIDTH 13.5 % (11.6-17.2); WHITE BLOOD COUNT 7.7 TH/MM3 (4.0-11.0)
[2017-02-17 05:18] LABS: ALBUMIN 2.8 GM/DL (3.4-5.0); AST (GOT) 18 U/L (15-37); BLOOD UREA NITROGEN 9 MG/DL (7-18); CALCIUM 8.6 MG/DL (8.5-10.1); CHLORIDE 106 MEQ/L (98-107); CREATININE 0.48 MG/DL (0.50-1.00); GLOMERULAR FILTRATION RATE 128 ML/MIN (>89); GLUCOSE,RANDOM 94 MG/DL (74-106); SODIUM (NA) 138 MEQ/L (136-145)
[2017-02-17 05:22] LABS: ALKALINE PHOSPHATASE 49 U/L (45-117); ALT (GPT) 13 U/L (10-53); TOTAL BILIRUBIN ADULT 0.5 MG/DL (0.2-1.0); TOTAL PROTEIN 5.5 GM/DL (6.4-8.2)
[2017-02-17] MEDS: PARoxetine HCL 20 MG TAB PO SCH (08:43)
[2017-02-17] MEDS: SODIUM CHLORIDE 0.9% FLUSH 10 ML FLUSH IV FLUSH SCH ×2 (08:43→19:54)
[2017-02-17] MEDS: DOCUSATE SODIUM 50 MG/SENNA 8.6 MG TAB PO SCH ×2 (08:44→19:54)
[2017-02-17] MEDS: FAMOTIDINE 20 MG TAB PO SCH ×2 (08:44→20:28)
[2017-02-17] MEDS ORDERED: HYDROCHLOROTHIAZIDE 25 MG TAB PO SCH (09:00)
[2017-02-17] MEDS: ONDANSETRON HCL 4 MG/2 ML VIAL IV PUSH PRN ×2 (09:18→19:55)
--- NOTE | 2017-02-17 11:14 | HHI.NSPN ---
History Chief Complaint: Headache. Interval History 02/16: Patient is a middle-aged female who states that she became dizzy and/or off balance at the top of a flight of stairs, losing her balance and falling down the stairs without definite loss of consciousness. No seizure activity reported Complains of mild headache and nausea without emesis. No dizziness or vertigo. No recent syncopal type episodes No chest pain or shortness of breath No significant pain weakness or numbness in the extremities 02/17: The patient is awake and alert texting on her cellphone when seen. She is sitting up in the bed. Family is present with her. She does complain of a headache at present. She states she did have nausea relieved with medication and was dizzy when she got up. She denies either at this time. She also denies any visual difficulty. She states that she wants to go home. Discussed the patient with the Trauma Attending who will sign off since bleed appears to be medical. The Apprentice Embalmer accepted the patient on his service. System Review Comments Constitutional: Some dizziness when getting up but none at present. Gastrointestinal: Nausea earlier but relieved with medication. Neurologic: Headache. The remainder of the ROS is negative. Exam Results 02/15/17 02/15/17 02/16/17 02/16/17 02/17/17 02/17/17 06:00 18:00 06:00 18:00 06:00 18:00 Intake Total 2974 ml Balance 2974 ml Intake Oral 1974 ml IV Total 1000 ml # Voids 3 # Bowel Movements 1 Vital Signs Date Time Temp Pulse Resp B/P (MAP) Pulse Ox O2 Delivery O2 Flow Rate FiO2 02/17/17 10:12 96 02/17/17 06:00 53 02/17/17 05:08 13 02/17/17 04:00 97.7 47 18 97/50 (66) 96 02/17/17 04:00 47 02/17/17 02:00 51 02/17/17 00:00 50 02/17/17 00:00 99.0 57 13 110/55 (73) 95 02/16/17 22:00 54 02/16/17 20:00 98.5 53 20 121/61 (81) 97 02/16/17 20:00 98.5 53 20 121/61 (81) 97 02/16/17 20:00 53 02/16/17 19:00 96 Room Air 02/16/17 18:00 60 02/16/17 16:11 02/16/17 16:00 98.2 63 28 128/62 (84) 96 02/16/17 16:00 63 02/16/17 15:10 64 18 136/74 (94) 96 Room Air 02/16/17 13:03 53 18 152/65 (94) 100 Room Air 02/16/17 12:40 99 02/16/17 12:33 63 17 159/72 (101) 99 Room Air 02/16/17 11:29 100 Room Air 02/16/17 11:29 100 Room Air 02/16/17 10:49 99 3.00 Physical Examination GENERAL: Awake & alert sitting in bed texting. Affect essentially flat. No distress apparent. SKIN: Warm and dry. Left occipital scalp laceration well approximated w/margarita w/o any erythema, streaking or evident drainage. HEENT: Normocephalic, left occipital scalp laceration. PERRLA 4 mm brisk, EOMI. No otorrhea or rhinorrhea. MMM & pink, no evident lesions, tongue midline to protrusion. MUSCULOSKELETAL: Moves all extremities spontaneously w/o difficulty. No evident clubbing or deformity. NEUROLOGICAL: AAOx3. Speech is clear & appropriate. Follows simple commands w/o difficulty. CN II-XII grossly intact. Sensation is intact to light touch to all extremities. Motor strength is 5/5 to all major flexion & extension muscle groups and to hand intrinsics & extrinsics. No evident Andre's bilaterally. No evident ankle clonus bilaterally. Neutral plantar response bilaterally. Lab, Micro, Other Results Recent Impressions Head CT 02/16/17 1042 Signed Impressions: Service Date/Time: Thursday, February 16, 2017 10:58 - CONCLUSION: 1. Subarachnoid hemorrhage along the suprasellar cisterns right greater than left as well as along the superior aspect of the cerebral falx. 2. Soft tissue swelling of the left parietal occipital bone with no evidence of fracture. Girma Silver MD Chest X-Ray 02/16/17 1042 Signed Impressions: Service Date/Time: Thursday, February 16, 2017 10:41 - CONCLUSION: No acute cardiopulmonary disease. Girma Silver MD Chest CT 02/16/17 1042 Signed Impressions: Service Date/Time: Thursday, February 16, 2017 11:07 - CONCLUSION: Negative trauma CT Girma Silver MD Cervical Spine CT 02/16/17 1042 Signed Impressions: Service Date/Time: Thursday, February 16, 2017 10:58 - CONCLUSION: Negative trauma CT. 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 Jayden Romero MD Laboratory Tests Test 02/16/17 10:45 02/16/17 16:50 02/17/17 04:27 White Blood Count 7.6 TH/MM3 7.7 TH/MM3 Red Blood Count 4.33 MIL/MM3 3.64 MIL/MM3 Hemoglobin 13.4 GM/DL 11.3 GM/DL Bedside Hemoglobin 12.6 G/DL Hematocrit 39.2 % 32.7 % Bedside Hematocrit 37.0 % Mean Corpuscular Volume 90.6 FL 90.0 FL Mean Corpuscular Hemoglobin 31.0 PG 31.1 PG Mean Corpuscular Hemoglobin Concent 34.2 % 34.6 % Red Cell Distribution Width 13.7 % 13.5 % Platelet Count 247 TH/MM3 223 TH/MM3 Mean Platelet Volume 7.7 FL 7.8 FL Neutrophils (%) (Auto) 68.4 % 69.5 % Lymphocytes (%) (Auto) 18.6 % 19.2 % Monocytes (%) (Auto) 9.7 % 9.9 % Eosinophils (%) (Auto) 2.6 % 1.0 % Basophils (%) (Auto) 0.7 % 0.4 % Neutrophils # (Auto) 5.2 TH/MM3 5.4 TH/MM3 Lymphocytes # (Auto) 1.4 TH/MM3 1.5 TH/MM3 Monocytes # (Auto) 0.7 TH/MM3 0.8 TH/MM3 Eosinophils # (Auto) 0.2 TH/MM3 0.1 TH/MM3 Basophils # (Auto) 0.1 TH/MM3 0.0 TH/MM3 CBC Comment DIFF FINAL DIFF FINAL Differential Comment Prothrombin Time 10.6 SEC Prothromb Time International Ratio 1.0 RATIO Activated Partial Thromboplast Time 22.1 SEC Bedside Sodium 142 MMOL/L Bedside Potassium 3.3 MMOL/L Bedside Chloride 106 MMOL/L Bedside Blood Urea Nitrogen 10 MG/DL Bedside Creatinine 0.6 MG/DL Bedside Glucose 122 MG/DL Nasal Screen MRSA (PCR) MRSA NOT DETECTED Blood Urea Nitrogen 9 MG/DL Creatinine 0.48 MG/DL Random Glucose 94 MG/DL Total Protein 5.5 GM/DL Albumin 2.8 GM/DL Calcium Level 8.6 MG/DL Alkaline Phosphatase 49 U/L Aspartate Amino Transf (AST/SGOT) 18 U/L Alanine Aminotransferase (ALT/SGPT) 13 U/L Total Bilirubin 0.5 MG/DL Sodium Level 138 MEQ/L Potassium Level 3.6 MEQ/L Chloride Level 106 MEQ/L Carbon Dioxide Level 25.0 MEQ/L Anion Gap 7 MEQ/L Estimat Glomerular Filtration Rate 128 ML/MIN Medical Decision Making Impression and Plan Impression: 1. Intracranial hemorrhage-subarachnoid hemorrhage. Traumatic versus spontaneous. 2. 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 Patient continues to do well with post-traumatic bleed symptoms. Reviewed labs for today. Interval drop in haemoglobin most likely a result of IVF. CT brain demonstrated subarachnoid haemorrhage to the suprasellar cisterns R>L and along the superior aspect of the cerebral falx. CT cervical spine unremarkable for any acute findings. CTA brain demonstrated a probable tiny left anterior cerebral artery aneurysm. CTA neck demonstrated fibromuscular dysplasia of the cervical left internal carotid artery. Plan: Discussed plan of care with Nursing & Trauma. Neuro checks. Stat CT brain for any decline in neuro status. Mechanical DVT prophylaxis. Hold pharmacologic DVT prophylaxis. Begin nimodipine due to potential for small anterior cerebral artery aneurysm- subarachnoid hemorrhage. Maintain blood pressure 110-140 range with intravenous medications as needed Stress ulcer prophylaxis. Will obtain repeat CT brain this morning. Dileep Ardon Feb 17, 2017 11:14
--- NOTE | 2017-02-17 13:27 | HHI.CCPN ---
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 CT head reveals subarachnoid hemorrhage. She is conversant and oriented X [address] neck has no acute injury. She will go now for cervical and intracranial arterial studies to look for possible aneurysm as etiology of bleed. 02/17: Alert, cooperative. Sore neck. Nauseas. Scalp wound clean, dry. Small aneurysm probably indicates spontaneous bleed preceded fall. Objective Vital Signs Date Time Temp Pulse Resp B/P (MAP) Pulse Ox O2 Delivery O2 Flow Rate FiO2 02/17/17 10:12 96 02/17/17 07:00 Room Air 02/17/17 06:00 53 02/17/17 05:08 13 02/17/17 04:00 97.7 97/50 (66) 02/16/17 10:49 3.00 Intake and Output 02/17/17 02/17/17 02/18/17 08:00 16:00 00:00 Intake Total 2734 ml Balance 2734 ml Result Diagram: 02/17/17 0427 02/17/17 042 Objective Remarks Head: Normal. Neck: Stiff, sore. Airway widely patent. Lungs: Clear, no wheezes or crackles. Comfortable pattern. Heart: NL S1S2, RRR. No JVD. Abdomen: Soft, no guarding, BS active. Extremities: Warm, well perfused. No edema. Neuro: O X 3, alert, cooperative. Memory good. Speech clear. Moves 4 limbs with 5/5 strength. Headache persists. NAVA. EOMI. A/P Problem List: (1) Traumatic subarachnoid hemorrhage ICD Code: S06.6X9A - Traumatic subarachnoid hemorrhage with loss of consciousness of unspecified duration, initial encounter Status: Acute Assessment and Plan Plan: 1. Neuro checks. 2. Repeat Head CT today. 3. IV isotonic saline -> advance diet. 4. Avoid chemical DVT px. 5. Ongoing survey looking for additional possible injuries. 6. SCDs. 7. CTA head and neck. 8. Maintain SBP < 150. 9. Neurosurgery consult. 10. Nimodipine. Overall impression: Patient has probable aneurysmal subarachnoid bleed. CTA brain reveals 2 mm aneurysm. Problem Qualifiers (1) Traumatic subarachnoid hemorrhage: Qualified Codes: S06.6X0A - Traumatic subarachnoid hemorrhage without loss of consciousness, initial encounter Edward Branch MD Feb 17, 2017 13:27
--- NOTE | 2017-02-17 17:32 | RADRPT ---
EXAM DATE/TIME: 02/17/2017 16:31 [facility] COMPARISON: CTA BRAIN W 3D RECON, February 16, 2017, 13:44. CT BRAIN W/O CONTRAST, February 16, 2017, 10:58. INDICATIONS : Follow up for subarachnoid hemorrhage. RADIATION DOSE: 38.78 CTDIvol (mGy) MEDICAL HISTORY : Cardiovascular disease. Uterine cancer. SURGICAL HISTORY : Hysterectomy. ENCOUNTER: Subsequent ACUITY: 2 days PAIN SCALE: 3/10 LOCATION: Bilateral cranial TECHNIQUE: Multiple contiguous axial images were obtained of the head. Using automated exposure control and adj ustment of the mA and/or kV according to patient size, radiation dose was kept as low as reasonably a chievable to obtain optimal diagnostic quality images. DICOM format image data is available electro nically for review and comparison. FINDINGS: Subarachnoid hemorrhage in the basilar cisterns remains evident but appears to be resolving. New focal parenchymal hemorrhage involving the medial left frontal lobe adjacent to the frontal horn is now apparent compared to the initial CT. It measures approximately 1.5 cm in size. Subarachnoid hemorrhage along the frontal convexities remains evident. The ventricles remain moderately distended but stable. CONCLUSION: 1. New left frontal parasagittal hemorrhage measuring 1.5 cm. 2. Persistent clearing subarachnoid hemorrhage. 3. Stable ventricular enlargement. 4. No significant shift or intra-axial mass effect. Matthew Browne MD on February 17, 2017 at 17:23 Board Certified Radiologist. This report was verified electronically.
[2017-02-18] VITALS (10 sets, daily range): BP systolic 109–134; BP diastolic 57–88; PULSE 45–66; RESP 15–24; TEMP 97.8–98.5; O2SAT 94–97
[2017-02-18] MEDS: niMODipine 30 MG CAP PO SCH ×9 (00:18→17:24)
[2017-02-18] MEDS: ACETAMINOPHEN 325 MG TAB PO PRN ×3 (02:21→14:18)
[2017-02-18] MEDS: CHLORHEXIDINE GLUCONATE 2 % 1 PACK (2 CLOTHS) TOP SCH (03:35)
[2017-02-18] MEDS: SODIUM CHLOR 0.9% 1000 ML INJ 1,000 ML IV SCH (04:26)
[2017-02-18 05:45] LABS: BICARBONATE 26.3 MEQ/L (21.0-32.0); CALCIUM 9.1 MG/DL (8.5-10.1); CREATININE 0.44 MG/DL (0.50-1.00); MAGNESIUM 1.9 MG/DL (1.5-2.5)
[2017-02-18] MEDS: POTASSIUM CHLORIDE 25 MEQ EFFERVESCENT TAB PO PRN (07:00)
[2017-02-18] MEDS: SODIUM CHLORIDE 0.9% FLUSH 10 ML FLUSH IV FLUSH SCH (07:46)
[2017-02-18] MEDS: DOCUSATE SODIUM 50 MG/SENNA 8.6 MG TAB PO SCH (07:47)
[2017-02-18] MEDS: PARoxetine HCL 20 MG TAB PO SCH (07:47)
[2017-02-18] MEDS: FAMOTIDINE 20 MG TAB PO SCH (07:47)
--- NOTE | 2017-02-18 09:16 | HHI.CCPN ---
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 CT head reveals subarachnoid hemorrhage. She is conversant and oriented X [address] neck has no acute injury. She will go now for cervical and intracranial arterial studies to look for possible aneurysm as etiology of bleed. 02/17: Alert, cooperative. Sore neck. Nauseas. Scalp wound clean, dry. Small aneurysm probably indicates spontaneous bleed preceded fall. 02/18: Alert and conversant. Stubborn - keeps removing BP cuff and leads. O X 3 however. Watch for signs of withdrawal, though I have no evidence that this will be a problem. Objective Vital Signs Date Time Temp Pulse Resp B/P (MAP) Pulse Ox O2 Delivery O2 Flow Rate FiO2 02/18/17 09:11 96 21 02/18/17 06:00 45 02/18/17 04:00 15 109/57 (74) 02/18/17 00:00 98.5 02/17/17 19:00 Room Air 02/16/17 10:49 3.00 Intake and Output 02/18/17 02/18/17 02/19/17 08:00 16:00 00:00 Intake Total 600 ml Balance 600 ml Result Diagram: 02/17/17 0427 02/18/17 0438 Objective Remarks Head: Normal. Neck: Stiff, sore. Airway widely patent. Lungs: Clear, no wheezes or crackles. Comfortable pattern. Heart: NL S1S2, RRR. No JVD. Abdomen: Soft, no guarding, BS active. Extremities: Warm, well perfused. No edema. Neuro: O X 3, alert, cooperative. Memory good. Speech clear. Moves 4 limbs with 5/5 strength. Headache persists. NAVA. EOMI. Station and gait normal. A/P Problem List: (1) Traumatic subarachnoid hemorrhage ICD Code: S06.6X9A - Traumatic subarachnoid hemorrhage with loss of consciousness of unspecified duration, initial encounter Status: Acute Assessment and Plan Plan: 1. Neuro checks. 2. Repeat Head CT today. 3. IV isotonic saline -> advance diet. 4. Avoid chemical DVT px. 5. Ongoing survey looking for additional possible injuries. 6. SCDs. 7. CTA head and neck. 8. Maintain SBP < 150. 9. Neurosurgery consult. 10. Nimodipine. Overall impression: Patient has probable aneurysmal subarachnoid bleed. CTA brain reveals [address] 02/17 with new frontal hemorrhage 1.5 cm. On nimodipine. Problem Qualifiers (1) Traumatic subarachnoid hemorrhage: Qualified Codes: S06.6X0A - Traumatic subarachnoid hemorrhage without loss of consciousness, initial encounter Edward Branch MD Feb 18, 2017 09:16
--- NOTE | 2017-02-18 09:47 | HHI.NSPN ---
History Chief Complaint: Headache. Interval History 02/16: Patient is a middle-aged female who states that she became dizzy and/or off balance at the top of a flight of stairs, losing her balance and falling down the stairs without definite loss of consciousness. No seizure activity reported Complains of mild headache and nausea without emesis. No dizziness or vertigo. No recent syncopal type episodes No chest pain or shortness of breath No significant pain weakness or numbness in the extremities 02/17: The patient is awake and alert texting on her cellphone when seen. She is sitting up in the bed. Family is present with her. She does complain of a headache at present. She states she did have nausea relieved with medication and was dizzy when she got up. She denies either at this time. She also denies any visual difficulty. She states that she wants to go home. Discussed the patient with the Trauma Attending who will sign off since bleed appears to be medical. The Finish Opener accepted the patient on his service. 02/18: This morning the patient is sitting on the edge of the bed with her make- up on and in jeans. She states she does have a headache and when she gets up she will have dizziness that does resolve. She states that she wants to go home this afternoon. She remains neurologically intact. She did have a repeat CT brain yesterday demonstrated improvement in the subarachnoid haemorrhages but unfortunately a new left frontal parasagittal haemorrhage. Exam Results 02/16/17 02/16/17 02/17/17 02/17/17 02/18/17 02/18/17 06:00 18:00 06:00 18:00 06:00 18:00 Intake Total 2974 ml 2200 ml 600 ml Balance 2974 ml 2200 ml 600 ml Intake Oral 1974 ml 1200 ml 600 ml IV Total 1000 ml 1000 ml # Voids 3 6 2 # Bowel Movements 1 1 Vital Signs Date Time Temp Pulse Resp B/P (MAP) Pulse Ox O2 Delivery O2 Flow Rate FiO2 02/18/17 09:11 96 21 02/18/17 06:00 45 02/18/17 04:00 47 15 109/57 (74) 96 02/18/17 04:00 47 02/18/17 02:00 51 02/18/17 00:00 66 02/18/17 00:00 98.5 66 24 121/62 (81) 97 02/17/17 22:00 49 02/17/17 20:00 97.4 51 18 132/58 (82) 96 02/17/17 20:00 51 02/17/17 19:53 96 02/17/17 19:00 96 Room Air 02/17/17 18:00 46 02/17/17 16:00 56 02/17/17 16:00 98.7 56 17 122/58 (79) 95 02/17/17 14:00 59 02/17/17 12:00 56 02/17/17 12:00 98.6 51 16 109/61 (77) 96 02/17/17 10:12 96 02/17/17 10:00 58 02/17/17 08:00 98.5 55 14 105/59 (74) 94 02/17/17 08:00 55 02/17/17 07:00 97 Room Air 02/17/17 06:00 53 02/17/17 05:08 13 02/17/17 04:00 97.7 47 18 97/50 (66) 96 02/17/17 04:00 47 02/17/17 02:00 51 02/17/17 00:00 50 02/17/17 00:00 99.0 57 13 110/55 (73) 95 02/16/17 22:00 54 02/16/17 20:00 98.5 53 20 121/61 (81) 97 02/16/17 20:00 98.5 53 20 121/61 (81) 97 02/16/17 20:00 53 02/16/17 19:00 96 Room Air 02/16/17 18:00 60 02/16/17 16:11 02/16/17 16:00 98.2 63 28 128/62 (84) 96 02/16/17 16:00 63 02/16/17 15:10 64 18 136/74 (94) 96 Room Air 02/16/17 13:03 53 18 152/65 (94) 100 Room Air 02/16/17 12:40 99 02/16/17 12:33 63 17 159/72 (101) 99 Room Air 02/16/17 11:29 100 Room Air 02/16/17 11:29 100 Room Air 02/16/17 10:49 99 Nasal Cannula 3.00 02/16/17 10:49 99 3.00 Physical Examination GENERAL: Awake & alert sitting on the edge of the bed watching TV and talking with her . Affect essentially flat. No distress apparent. SKIN: Warm and dry. Left occipital scalp laceration well approximated w/margarita w/o any erythema, streaking or evident drainage. HEENT: Normocephalic, left occipital scalp laceration. PERRLA 3 mm brisk, EOMI. No otorrhea or rhinorrhea. MMM & pink, no evident lesions, tongue midline to protrusion. MUSCULOSKELETAL: Moves all extremities spontaneously w/o difficulty. No evident clubbing or deformity. NEUROLOGICAL: AAOx3. Speech is clear & appropriate. Follows simple commands w/o difficulty. CN II-XII grossly intact. Sensation is intact to light touch to all extremities. Motor strength is 5/5 to all major flexion & extension muscle groups and to hand intrinsics & extrinsics. Lab, Micro, Other Results This practitioner independently reviewed the CT brain images done on and compared with those from and concurs with the Radiologist's findings. Recent Impressions Head CT 02/17/17 1035 Signed Impressions: Service Date/Time: January 16:31 - CONCLUSION: 1. New left frontal parasagittal hemorrhage measuring 1.5 cm. 2. Persistent clearing subarachnoid hemorrhage. 3. Stable ventricular enlargement. 4. No significant shift or intra-axial mass effect. Matthew Browne MD Head CT 02/16/17 1042 Signed Impressions: Service Date/Time: Thursday, February 16, 2017 10:58 - CONCLUSION: 1. Subarachnoid hemorrhage along the suprasellar cisterns right greater than left as well as along the superior aspect of the cerebral falx. 2. Soft tissue swelling of the left parietal occipital bone with no evidence of fracture. Girma Silver MD Chest X-Ray 02/16/17 1042 Signed Impressions: Service Date/Time: Thursday, February 16, 2017 10:41 - CONCLUSION: No acute cardiopulmonary disease. Girma Silver MD Chest CT 02/16/17 1042 Signed Impressions: Service Date/Time: Thursday, February 16, 2017 11:07 - CONCLUSION: Negative trauma CT Girma Silver MD Cervical Spine CT 02/16/17 1042 Signed Impressions: Service Date/Time: Thursday, February 16, 2017 10:58 - CONCLUSION: Negative trauma CT. 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 Jayden Romero MD Laboratory Tests Test 02/16/17 10:45 02/16/17 16:50 02/17/17 04:27 02/18/17 04:38 White Blood Count 7.6 TH/MM3 7.7 TH/MM3 Red Blood Count 4.33 MIL/MM3 3.64 MIL/MM3 Hemoglobin 13.4 GM/DL 11.3 GM/DL Bedside Hemoglobin 12.6 G/DL Hematocrit 39.2 % 32.7 % Bedside Hematocrit 37.0 % Mean Corpuscular Volume 90.6 FL 90.0 FL Mean Corpuscular Hemoglobin 31.0 PG 31.1 PG Mean Corpuscular Hemoglobin Concent 34.2 % 34.6 % Red Cell Distribution Width 13.7 % 13.5 % Platelet Count 247 TH/MM3 223 TH/MM3 Mean Platelet Volume 7.7 FL 7.8 FL Neutrophils (%) (Auto) 68.4 % 69.5 % Lymphocytes (%) (Auto) 18.6 % 19.2 % Monocytes (%) (Auto) 9.7 % 9.9 % Eosinophils (%) (Auto) 2.6 % 1.0 % Basophils (%) (Auto) 0.7 % 0.4 % Neutrophils # (Auto) 5.2 TH/MM3 5.4 TH/MM3 Lymphocytes # (Auto) 1.4 TH/MM3 1.5 TH/MM3 Monocytes # (Auto) 0.7 TH/MM3 0.8 TH/MM3 Eosinophils # (Auto) 0.2 TH/MM3 0.1 TH/MM3 Basophils # (Auto) 0.1 TH/MM3 0.0 TH/MM3 CBC Comment DIFF FINAL DIFF FINAL Differential Comment Prothrombin Time 10.6 SEC Prothromb Time International Ratio 1.0 RATIO Activated Partial Thromboplast Time 22.1 SEC Bedside Sodium 142 MMOL/L Bedside Potassium 3.3 MMOL/L Bedside Chloride 106 MMOL/L Bedside Blood Urea Nitrogen 10 MG/DL Bedside Creatinine 0.6 MG/DL Bedside Glucose 122 MG/DL Nasal Screen MRSA (PCR) MRSA NOT DETECTED Blood Urea Nitrogen 9 MG/DL 9 MG/DL Creatinine 0.48 MG/DL 0.44 MG/DL Random Glucose 94 MG/DL 109 MG/DL Total Protein 5.5 GM/DL Albumin 2.8 GM/DL Calcium Level 8.6 MG/DL 9.1 MG/DL Alkaline Phosphatase 49 U/L Aspartate Amino Transf (AST/SGOT) 18 U/L Alanine Aminotransferase (ALT/SGPT) 13 U/L Total Bilirubin 0.5 MG/DL Sodium Level 138 MEQ/L 137 MEQ/L Potassium Level 3.6 MEQ/L 3.3 MEQ/L Chloride Level 106 MEQ/L 103 MEQ/L Carbon Dioxide Level 25.0 MEQ/L 26.3 MEQ/L Anion Gap 7 MEQ/L 8 MEQ/L Estimat Glomerular Filtration Rate 128 ML/MIN 141 ML/MIN Magnesium Level 1.9 MG/DL Medical Decision Making Impression and Plan Impression: 1. Intracranial hemorrhage-subarachnoid hemorrhage. Traumatic versus spontaneous. 2. 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 Patient is doing well with persistent post-traumatic bleed symptoms. She is neurologically intact. Reviewed labs for today. Development of hypokalemia. CT brain demonstrated interval development of a left frontal parasagittal haemorrhage. There was interval improvement in the subarachnoid haemorrhages. Plan: Discussed plan of care with patient & family. Primary management per Finish Opener. Neuro checks. Stat CT brain for any decline in neuro status. Mechanical DVT prophylaxis. Hold pharmacologic DVT prophylaxis. Begin nimodipine due to potential for small anterior cerebral artery aneurysm- subarachnoid hemorrhage. Maintain blood pressure 110-140 range with intravenous medications as needed Stress ulcer prophylaxis. ADDENDUM at 1624: Spoke with Dr Irby who had reviewed the CT scan from yesterday. Since the patient was stable she was okay for discharge from NSGY's perspective. The patient is to call the office to arrange a follow up appointment in 2 weeks and to arrange to have a CT scan brain done before her office visit. Dileep Montero Feb 18, 2017 09:47
[2017-02-18] MEDS: ONDANSETRON HCL 4 MG/2 ML VIAL IV PUSH PRN (09:58)
[2017-02-18] MEDS ORDERED: PROMETHAZINE HCL 25 MG TAB PO PRN (11:00)
--- NOTE | 2017-02-18 16:46 | HHI.DS ---
Discharge Summary Admission Date Feb 16, 2017 at 11:56 Discharge Date: Feb 18, 2017 Admitting Diagnosis traumatic subarachnoid hemmorhage, scalp laceration, fall from stair (1) Subarachnoid hemorrhage ICD Code: I60.9 - Nontraumatic subarachnoid hemorrhage, unspecified Diagnosis: Principal (2) Occipital scalp laceration ICD Code: S01.01XA - Laceration without foreign body of scalp, initial encounter Diagnosis: Principal Procedures CTA Head - possible tiny cerebral artery aneurysm CBC/BMP: 02/17/17 0427 02/18/17 0438 Significant Findings Laboratory Tests Test 02/16/17 10:45 02/16/17 16:50 02/17/17 04:27 02/18/17 04:38 Bedside Hematocrit 37.0 % (38.0-51.0) Monocytes (%) (Auto) 9.7 % (0.0-8.0) 9.9 % (0.0-8.0) Activated Partial Thromboplast Time 22.1 SEC (24.3-30.1) Bedside Potassium 3.3 MMOL/L (3.5-4.9) Bedside Glucose 122 MG/DL (60-95) Red Blood Count 3.64 MIL/MM3 (4.00-5.30) Hemoglobin 11.3 GM/DL (11.6-15.3) Hematocrit 32.7 % (35.0-46.0) Creatinine 0.48 MG/DL (0.50-1.00) 0.44 MG/DL (0.50-1.00) Total Protein 5.5 GM/DL (6.4-8.2) Albumin 2.8 GM/DL (3.4-5.0) Random Glucose 109 MG/DL (74-106) Potassium Level 3.3 MEQ/L (3.5-5.1) Imaging CTA neck - nonocclusive fibromuscular dysplasia left internal carotid artery. Head CT - 1.5 cm frontal lobe bleed, stable. Tiny aneurysm. Subarachnoid blood. Chest CT - normal. CT neck - No fracture or dislocation PE at Discharge Lungs clear. Heart: RRR. Neuro grossly intact. Transfer Summary Patient fell down flight of stairs and sustained a stellate laceration to the occiput. CT Head revealed subarachnoid bleed and CTA revealed possible 2 mm cerebral artery aneurysm. Principal diagnosis is traumatic bleed and incidental aneurysm. Discussed in detail with patient who understands possibilities and risks. She will take Nimodipine for 3 weeks, 60 mg q4h and see Dr. Irby in office in 2 weeks. She will return promptly to ED for worsening headache. Her blood pressure has been well controlled in the hospital. 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 CT head reveals subarachnoid hemorrhage. She is conversant and oriented X [address] neck has no acute injury. She will go now for cervical and intracranial arterial studies to look for possible aneurysm as etiology of bleed. 02/17: Alert, cooperative. Sore neck. Nauseas. Scalp wound clean, dry. Small aneurysm probably indicates spontaneous bleed preceded fall. 02/18: Alert and conversant. Stubborn - keeps removing BP cuff and leads. O X 3 however. Watch for signs of withdrawal, though I have no evidence that this will be a problem. Pt Condition on Discharge: Good Discharge Disposition: Discharge Home Discharge Instructions DIET: Follow Instructions for: As Tolerated, No Restrictions Activities you can perform: Weight Bearing as Edward Miranda MD Feb 18, 2017 16:46
== END 2017-02-18 18:19 | disposition home or self-care (01) | DRG 87 ==
LOC: NEPI 10:39 → EDBD 11:56 → NEDA 11:56 → N03B 16:12
PROVIDERS: ADMIT Surgery Surgical Critical Care; ATTEND Surgery Surgical Critical Care
PROC: 0HQ0XZZ Repair Scalp Skin, External Approach (ICD-10-PCS; principal; 2017-02-16)
DX: S06.6X1A Traumatic subarachnoid hemorrhage with loss of consciousness of 30 minutes or less, initial encounter (principal); I67.1 Cerebral aneurysm, nonruptured; S01.01XA Laceration without foreign body of scalp, initial encounter; W10.9XXA Fall (on) (from) unspecified stairs and steps, initial encounter; Z79.82 Long term (current) use of aspirin; I10 Essential (primary) hypertension; I77.3 Arterial fibromuscular dysplasia; E87.6 Hypokalemia
CPT/HCPCS: 12002; 70450; 70496; 70498; 71010; 71260; 72125; 80048; 80053; 82435; 82565; 82947; 83735; 84132; 84295; 84520; 85025; 85610; 85730; 86850; 86900; 86901; 87641; 94150; 96365; 96375; 99291; G0390; J0690; J2270; J2405; J7030; Q0169; Q9967